=== PATIENT | male | born 1975 | race Caucasian/White ===

== ENCOUNTER 2017-01-10 19:02 | Inpatient (IN) | payer SELFPAY ==
[~2017-01-10] VITALS: Ht 167.6 cm; Wt 78.7 kg
--- NOTE | 2017-01-10 20:33 | NUR ---
PATIENT SEEN WITH COMPLAINT OF FLU SYMPTOMD. SEEN BY MD WENT FOR XRAY. OPATIENT RETURN TO THE ROOM. VITAL SIGNS RE-CHECK TEMP IS 103 TYLENOL WAS GIVEN
--- NOTE | 2017-01-10 20:58 | NUR ---
PATIENT MEDICATED WITH MOTRIN FOR FEVER. FAMILY REQUEST BLOOD SUGAR CHECK SAME IS 64 MG /DL. JUICE GIVEN
[2017-01-10 21:36] LABS: PLATELET COUNT 318 x10^3mcL (130-400); RED CELL DISTRIBUTION WIDTH 13.8 % (11.5-14.5)
[2017-01-10 21:39] LABS: BASOPHIL % 0 % (0-2)
[2017-01-10 21:44] LABS: CALCIUM 8.4 mg/dL (8.5-10.1); CARBON DIOXIDE 18.7 mmol/L (21-32); CREATININE SERUM 3.6 mg/dL (0.7-1.3); POTASSIUM SERUM 4.7 mmol/L (3.5-5.1)
[2017-01-10 21:49] LABS: BILIRUBIN TOTAL 0.2 mg/dL (0.20-1.00); TOTAL PROTEIN, SERUM 6.3 g/dL (6.4-8.2)
--- NOTE | 2017-01-10 21:57 | NUR ---
PATIEN IS SOCIALIZING WITH FAMILY, TEMPERATURE IS NOW 100.7. PATIENT EXPRESS MILD HEADACHE PAIN. ANTIBIOTIC AND FLUID INFUSING.
[2017-01-10] MEDS ORDERED: ZESTRIL5 MG PO (23:04)
[2017-01-10] MEDS ORDERED: LANTUS SOLOS100 U/M1 SQ (23:06)
[2017-01-10] MEDS ORDERED: LASIX20 MG PO (23:06)
[2017-01-10] MEDS ORDERED: NOVOLIN 70/3010 ML (23:07)
--- NOTE | 2017-01-10 23:27 | NUR ---
REPORT WAS GIVEN TO HAL. PATIENT TRANSPORTED TO ROOM 208B.
--- NOTE | 2017-01-10 23:54 | NUR ---
RECEIVED PT FROM ED VIA ERNEY, CAME IN DUE TO COUGH, FEVER AND BODY ACHES. AAOX4. NO SOB NOTED, LUNG SOUNDS CTA, STATED THAT HE HAS DRY COUGH. DENIES CHEST PAIN/PRESSURE, NSR ON THE MONITOR. DENIES ABDOMINAL DISCOMFORT. PALE. STATED THAT HE HAS RIGHT FOOR NUMBNESS. W/ DARK DISCOLORATION AND SWELLING ON RIGHT FOOT (WORSE ON THE 3RD-4TH TOE) AND OPEN WOUND ON THE PLANTAR ASPECT OF THE RIGHT FOOT, NO DRAINAGE NOTED. WOUND CLEANSED W/ NS, PAT AND DRY, COVERED W/ NON-ADHERENT DRESSING, KERLIX AND SECURED W/ FABIÁN BANDAGE. WOUND CULTURE DONE AND SENT TO LAB. DR. TRIMBLE AT BEDSIDE. SIDE RAILS UPX2. CALL LIGHT ON REACH. ENDORSED TO PRIMARY NURSE HAL FOR CONTINUITY OF CARE.
[2017-01-11] VITALS (8 sets, daily range): BP systolic 103–140; BP diastolic 61–88; Ht 167.6 cm; Wt 78.7 kg
[2017-01-11 00:07] LABS: FREE T4 1.4 ng/dL (0.76-1.46); FREE THYROXINE INDEX 2.5 ug/dL (1.4-4.5); T4(THYROXINE) 6.3 ug/dL (4.7-13.3)
--- NOTE | 2017-01-11 00:28 | NUR ---
RANDOM BLOOD FYNJO=[id number].
[2017-01-11 00:58] LABS: MAGNESIUM 1.6 mg/dL (1.8-2.4); PHOSPHOROUS 3.4 mg/dL (2.5-4.9)
[2017-01-11 01:02] LABS: CHOLESTEROL/HDL RATIO 2.8
[2017-01-11 01:03] LABS: T3 TOTAL 0.72 ng/mL
--- NOTE | 2017-01-11 01:26 | NUR ---
VITALS RECHECKED AFTER BOLUS.BP 103/61 MMHG,HR 70,TEMP 99.6F,RR 18 O2 SAT @ 99%.WILL CONTINUE TO MONITOR.
[2017-01-11 01:36] LABS: IRON 17 ug/dL (65-170); TOTAL IRON BINDING CAPACITY 147 ug/dL (250-450)
[2017-01-11 03:28] LABS: RED BLOOD CELLS 3.13 M/mm3 (4.52-5.90)
[2017-01-11 03:40] LABS: microscopic required? YES; urine erythrocyte TRACE (NEGATIVE)
[2017-01-11 04:02] LABS: AMPHETAMINE QUAL UR NONE DETECTED (NEG <=1000)
--- NOTE | 2017-01-11 04:59 | NUR ---
PT SLEPT WELL ALL NIGHT.BREATHING EASY AND NON-LABORED.NOTED WITH OCCASSIONAL DRY COUGHING.ON RT PROTOCOL.I.S AT BEDSIDE AND ENCOURAGED USE.NO ASE NOTED FROM INITIAL DOSE OF ZOSYN IV ATB.ALL NEEDS MET.WILL CONTINUE TO MONITOR.
--- NOTE | 2017-01-11 07:15 | NUR ---
RECEIVED PT. IN BED A/A/O X3. NO SOB, NO N/V NOTED. DENIES ANY PAIN AT THIS TIME. NS RUNNING AT 210 CC/HR. VIA IV H/L AT L AC. SCD TO BLE MAINTAINED. BED IN LOW POS., CALL LIGHT WITHIN REACH. SIDE RAILS UP X3.
[2017-01-11 07:28] LABS: BASOPHIL % 0.2 % (0-2); PLATELET COUNT 247 x10^3mcL (130-400); RED CELL DISTRIBUTION WIDTH 13.9 % (11.5-14.5)
[2017-01-11 07:34] LABS: CALCIUM 7.8 mg/dL (8.5-10.1); CARBON DIOXIDE 14.2 mmol/L (21-32); CREATININE SERUM 3.7 mg/dL (0.7-1.3); MAGNESIUM 1.7 mg/dL (1.8-2.4); PHOSPHOROUS 4.5 mg/dL (2.5-4.9); POTASSIUM SERUM 5.3 mmol/L (3.5-5.1)
--- NOTE | 2017-01-11 08:36 | NUR ---
DR. GUZMAN, THE RESIDENTS, CHARGE NURSE, AND ATTENDING NURSE AT BEDSIDE. CAREPLAN DISCUSSED WITH PT. ALL QUESTIONS ANSWERED.
--- NOTE | 2017-01-11 08:45 | NUR ---
REPORTED K (5.3), H/H (7.2/22) TO DR. DENTON (DO RESIDENT). NO FURTHER ORDER RECEIVED AT THIS TIME.
--- NOTE | 2017-01-11 09:20 | NUR ---
Carlos A RINCON AT BEDSIDE PERFORMING R FOOT WOUND DEBRIDEMENT.
--- NOTE | 2017-01-11 09:35 | NUR ---
SWAB FROM R FOOT (PLANTAR AREA) WOUND OBTAINED BY DR. GAMEZ. R FOOT WOUND SWAB SENT TO LAB. DEPT. FOR WOUND C/S.
--- NOTE | 2017-01-11 09:50 | NUR ---
PHOTOGRAPH OF R FOOT (PLANTAR AREA) WOUND TAKEN POST WOUND DEBRIDEMENT.
--- NOTE | 2017-01-11 11:10 | NUR ---
NOTED PT. VOMITTED APPRO. 100 CC OF YELLOWISH VOMITUS. ZOFRAN 4MG IV GIVEN.
--- NOTE | 2017-01-11 12:20 | NUR ---
TEMP.= 100.8; TYLENOL 650MG PO GIVEN. COOLING MEASURES APPLIED.
--- NOTE | 2017-01-11 17:04 | NUR ---
REMAINS IN STABLE CONDITION AT THIS TIME. NO ACUTE DISTRESS NOTED.
--- NOTE | 2017-01-11 19:59 | NUR ---
RECEIVED PATIENT IN BED AWAKE, ALERT AND ORIENTED.TELE#13 NSR ON MONITORRESPIRATION EVEN AND NONLABOR WITH CLEAR BS SATTING AT 98% RA. IV TO LAC INTACT AND INFUSING WELL. WILL CONTINUE TO MONITOR.
--- NOTE | 2017-01-12 02:54 | NUR ---
SLEEPING THIS TIME NOINDICATION OF PAIN AND DISCOMFORT NOTED.
--- NOTE | 2017-01-12 04:03 | NUR ---
PATIENT FEBRILE 102.5 TYLENOL 650MG PO AND COOLING MEASURES GIVEN. WILL CONTINUE TO MONITOR.
--- NOTE | 2017-01-12 05:03 | NUR ---
SLEPT FAIRLY, CHECKED AT INTERVALS FOR NEEDS AND COMFORT. ALL NEEDS ATTENDED.
[2017-01-12 05:12] VITALS: BP 134/81
[2017-01-12 05:41] VITALS: BP 120/71
[2017-01-12 07:14] LABS: PLATELET COUNT 252 x10^3mcL (130-400); RED CELL DISTRIBUTION WIDTH 13.7 % (11.5-14.5)
--- NOTE | 2017-01-12 07:20 | NUR ---
PT RECEIVED. PT AAO X4. TELE [address] PT HAS SOME SWELLING TO THE RIGHT FOOT. RIGHT FOOT COVERED WITH DRESSING POST DEBRIDEMENT. DRESSING CDI. RESPIRATIONS EVEN AND UNLABORED ON ROOM AIR, SPO2 98%. RT PROTOCOL. BS ACTIVE. PT IS AMBULATORY. NS INFUSING PER ORDER, IV APPEARS WNL. PT APPEARS CALM. CALL LIGHT WITHIN REACH. WILL CONTINUE TO MONITOR.
[2017-01-12 07:30] LABS: BASOPHIL % 0 % (0-2)
[2017-01-12 07:31] LABS: CALCIUM 7.8 mg/dL (8.5-10.1); CREATININE SERUM 3.4 mg/dL (0.7-1.3); MAGNESIUM 1.7 mg/dL (1.8-2.4); PHOSPHOROUS 3.7 mg/dL (2.5-4.9); POTASSIUM SERUM 4.6 mmol/L (3.5-5.1)
--- NOTE | 2017-01-12 08:35 | NUR ---
DR GUZMAN AND MEDICAL TEAM VISITED PATIENT AT BEDSIDE THIS MORNING. PT UPDATED ON PLAN OF CARE. ALL QUESTIONS ANSWERED. RESIDENT MADE AWARE OF MORNING H&H LAB READING AT THIS TIME. WILL CONTINUE TO MONITOR FOR NEW ORDERS.
[2017-01-12 10:20] VITALS: BP 136/86
[2017-01-12 10:38] LABS: rbc morphology (normal/abnorm) ABNORMAL (NORMAL)
[2017-01-12 10:39] LABS: burr cell (echinocyte) 1+; schistocyte (helmet cell) 1+
--- NOTE | 2017-01-12 12:00 | NUR ---
PT RESTING IN BED WITH FAMILY AT BEDSIDE. NO ACUTE CHANGES TO CONDITION. NO INDICATIONS OF ACUTE DISTRESS. COOLING MEASURES CONTINUED FOR PATIENT. CALL LIGHT WITHIN REACH. WILL CONTINUE TO MONITOR.
[2017-01-12 14:21] VITALS: BP 128/63
[2017-01-12 17:23] VITALS: BP 117/73
--- NOTE | 2017-01-12 19:27 | NUR ---
REPORT GIVEN TO NIGHT NURSE. AT THIS TIME THE PATIENT IS RESTING IN BED. NO ACUTE CHANGES TO CONDITION. RESPIRATIONS UNLABORED AND EVEN ON ROOM AIR. COOLING MEASURES CONTINUED. IV INFUSING PER ORDER, APPEARS WNL. TELE MONITOR IN PLACE. FAMILY AT BEDSIDE. CALL LIGHT WITHIN REACH. ALL SAFETY MEASURES IN PLACE.
--- NOTE | 2017-01-12 19:30 | NUR ---
PT AWAKE, A/O X4. FAMILY AT BEDSIDE. NO ACUTE DISTRESS NOTED. PT DENIES ANY PAIN TO R FOOT, DIFFICULTY BREATHING OR CHEST PAIN AT THIS TIME. R FOOT DRESSING C/D/I AT THIS TIME. 3RD TOE APPEARS SWOLLEN. PT DENIES ANY NUMBNESS OR TINGLING TO RT TOE/FOOT. NO EDEMA, SWELLING OR REDNESS NOTED TO R LEG. IV FLUIDS INFUSING PER MD ORDER. IV TO LAC PATENT AND INTACT. NO PAIN, REDNESS, SWELLING NOTED TO SITE. ALL SAFETY MEASURES ENSURED. CALL LIGHT AND PERSONAL BELONGINGS WITHIN REACH WILL CONTINUE TO MONITOR.
[2017-01-12 20:34] VITALS: BP 127/79
--- NOTE | 2017-01-13 01:15 | NUR ---
PT AWAKE AND SITTING UP IN BED AT THIS TIME. TOOK PHOTO OF PTS DIABETIC ULCER TO PLANTAR ASPECT OF R. FOOT AND REDRESSED AREA. PT TOLERATED WELL. DENIED ANY PAIN. MINIMAL DRAINAGED NOTED TO DRESSING. NON-ODOROUS.
--- NOTE | 2017-01-13 05:24 | NUR ---
BLOOD SUGAR -, DR GONZALEZ MADE AWARE, D50 IVP GIVEN, PATIENT AWAKE AND ALERT. TO RECHECKED BLOOD SUGAR IN 30 MIN.
--- NOTE | 2017-01-13 05:49 | NUR ---
BLOOD SUGAR-102 RECHECKED AFTER D50 WAS GIVEN. WILL ENDORSED CONTINUOS CARE TO AM SHIFT.
[2017-01-13 05:52] VITALS: BP 156/88
--- NOTE | 2017-01-13 05:55 | NUR ---
PT RESTED THROUGHT MOST OF THE NIGHT. NO ACUTE DISTRESS NOTED. PT DENIES ANY PAIN TO R FOOT, SOB, CHEST PAIN AT THIS TIME. NO FEVER, CHILLS OR AREVALO NOTED. TEMP 97.9. IV FLUIDS INFUSING PER MD ORDER. IV SITED REMAINS PATENT AND INTACT. ALL PT NEEDS MET. ALL SAFETY MEASURES ENSURED. CALL LIGHT AND PERSONAL BELONGINGS WITHIN REACH. WILL CONTINUE TO MONITOR.
[2017-01-13 06:04] LABS: BASOPHIL % 0.1 % (0-2); PLATELET COUNT 300 x10^3mcL (130-400); RED CELL DISTRIBUTION WIDTH 13.9 % (11.5-14.5)
[2017-01-13 06:14] LABS: CALCIUM 8.3 mg/dL (8.5-10.1); CARBON DIOXIDE 15.1 mmol/L (21-32); CREATININE SERUM 3.3 mg/dL (0.7-1.3); MAGNESIUM 1.6 mg/dL (1.8-2.4); PHOSPHOROUS 4.1 mg/dL (2.5-4.9); POTASSIUM SERUM 4.8 mmol/L (3.5-5.1)
--- NOTE | 2017-01-13 06:30 | NUR ---
CALLED RT TO CONFIRM IF PT WILL GET SUCTIONED FOR SPUTUM SPECIMEN. RT STATED WILL ENDORSE TO ONCOMING SHIFT. PT UNABLE TO COUGH ANY SPUTUM AND STATES HE IS UNABLE TO DO SO. MADE PT AWARE THAT AN RT WILL BE COMING UP TO OBTAIN A SAMPLE VIA ORAL SUCTION.
--- NOTE | 2017-01-13 06:56 | NUR ---
RECEIVED CRITICAL LAB REPORT FROM LAB H/H 6.10/06, YESTERDAYS LAB WAS 6.07/06. NOTIFIED.
--- NOTE | 2017-01-13 07:30 | NUR ---
RECEIVED PATIENT AWAKE/ALERT LAYING IN BED AT THIS TIME; DR. GAMEZ WITH ANOTHER INTERNAL AT BEDSIDE PERFORM DEBRIDEMENT TO RT FOOT; IV INTACT AND INFUSING TO LAC; DENIES PAIN AT THIS TIME. WILL BE BACK WHEN DOCTOR DONE. CALL LIGHT WITHIN REACH.
--- NOTE | 2017-01-13 07:50 | NUR ---
DR. DENTON WAS AWARE H/H 6.8.
[2017-01-13 08:21] LABS: rbc morphology (normal/abnorm) ABNORMAL (NORMAL)
--- NOTE | 2017-01-13 09:00 | NUR ---
PATIENT RESTING IN BED NO COMPLAINT, CONSENT FOR EGD OBTAINED; MODERATE SEDATION SIGNED BY PATIENT NO FURTHER QUESTION; JEWLERY REMOVED; PATIENT WAS NPO SINCE 0700. CALL LIGHT WITHIN REACH.
[2017-01-13 09:54] VITALS: BP 139/85
--- NOTE | 2017-01-13 10:17 | NUR ---
PATIENT SAT UP AT SIDE OF BED NO COMPLAINT, MG-RIDER 1 GM IVPB GIVEN FOR MG 1.6; REPLACE IVF TO 1/2NS + 50ML SODIUM BICARBONATE @ 75ML/HR ORDER; NEEDS ANTICIPATED.
--- NOTE | 2017-01-13 10:43 | NUR ---
MAYI IV; GI NURSE AT BEDSIDE TRANSPORT PATIENT OFF FLOOR TO GI LAB FOR EGD.
--- NOTE | 2017-01-13 12:10 | NUR ---
RECEIVED PATIENT BACK FROM GI LAB IN BED AWAKE/ALERT SLIGHTLY DROWSY NOTED, DENIES PAIN. IV INTACT CONNECT TO IV PUMP CONT MG-RIDER INFUSING @ 50ML/HR. FAMILY MEMBERS AT BEDSIDE. CALL LIGHT WITHIN REACH. VSS. CONT TO MONITOR.
[2017-01-13 12:16] VITALS: BP 124/74
--- NOTE | 2017-01-13 13:20 | NUR ---
PATIENT BACK FROM BATHROOM; FAMILY MEMBERS AT BEDSIDE. DUE MEDS GIVEN. NEEDS ANTICIPATED.
--- NOTE | 2017-01-13 15:56 | NUR ---
PATIENT SLEEPING AROUSABLE, NO COMPLAINT. DUE MEDS GIVEN. CLEOCIN 600MG IVPB GIVEN. DENIES PAIN AT THIS TIME. FAMILY MEMBERS AT BEDSIDE. CONT TO MONITOR.
[2017-01-13 16:16] VITALS: BP 142/84
--- NOTE | 2017-01-13 17:21 | NUR ---
PATIENT SIT UP IN BED NO COMPLAINT, DUE MEDS GIVEN. BS 284 GIVE 9 UNITS HUMULIN R SQ TO LT ARM; NEEDS ANTICIPATED. FAMILY MEMBERS REMAIN AT BEDSIDE. CONT TO MONITOR.
[2017-01-13 17:29] VITALS: BP 142/84
--- NOTE | 2017-01-13 18:32 | NUR ---
PATIENT RESTING IN BED NO COMPLAINT, FAMILY MEMBERS REMAIN AT BEDSIDE; IV INTACT AND PATENT. CALL LIGHT WITHIN REACH.
--- NOTE | 2017-01-13 19:10 | NUR ---
START PATIENT ON MOVIPREP; CARE ENDORSE TO ON-COMING NURSE.
--- NOTE | 2017-01-13 19:50 | NUR ---
PT SEEN, RESTING IN BED, ALERT AND ORIENTED, DENIES HEADACHE OR DIZZINESS, BREATHING EVEN AND UNLABORED, NO SOB, LUNG SOUNDS CLEAR, ON ROOM AIR WITH NO RESP DISTRESS NOTED, ON TELE#13 NSR, DENIES CHEST PAIN, IVF INFUSING WELL WITH SODIUM BICARBONATE @ 75 ML/HR, PULSES PALPABLE, EDEMA NOTED TO RLE, DRESSING TO RLE, ABD ROUND AND SOFT WITH ACTIVE BS, NO BM AT THIS TIME, ON BOWEL PREP, VOIDING FREELY, NO DISTRESS NOTED, WILL KEEP TO MONITOR.
[2017-01-13 20:30] VITALS: BP 128/84
--- NOTE | 2017-01-13 23:55 | NUR ---
ROUNDS MADE, PT AWAKE AND RESTING IN BED, FINISHED MOVI-PREP, IVF INFUSING WELL, NO DISTRESS NOTED, WILL KEEP TO MONITOR.
[2017-01-14 04:55] VITALS: BP 106/63
--- NOTE | 2017-01-14 05:45 | NUR ---
PT THIS MORNING BLOOD SUGAR-56 MG/DL AND REPEATED WAS 64 MG/DL, DEXTROSE 50% 50ML ADMINISTERED PER PROTOCOL, PT WAS AWAKE, ALERT AND ORINETED, DENIES ANY DISCOMFORT, NPO AFTER MN FOR COLONOSCOPY AND I&D AM, RECHECK PT'S BLOOD SUGAR 15 MINS AFTER ADMINISTERED DEXTROSE 50%, BLOOD SUGAR WENT UP TO 140 MG/DL, NOTIFIED DR BARGER ABOUT PT'S SUGAR, OLD IV SITE IS LEAKING, RE-INSERTED TO SARMAD WITH 22G, CONT INFUSING WITH SODIUM BICARBONATE @ 75 ML/HR, LAST BM WAS LIGHT GREENISH LIQUID, NO DISTRESS NOTED, WILL KEEP TO MONITOR.
[2017-01-14 06:18] LABS: BASOPHIL % 0.3 % (0-2); PLATELET COUNT 284 x10^3mcL (130-400)
[2017-01-14 06:37] LABS: CALCIUM 8.4 mg/dL (8.5-10.1); CARBON DIOXIDE 16.2 mmol/L (21-32); CREATININE SERUM 3.1 mg/dL (0.7-1.3); MAGNESIUM 1.9 mg/dL (1.8-2.4); PHOSPHOROUS 4.2 mg/dL (2.5-4.9); POTASSIUM SERUM 4.8 mmol/L (3.5-5.1)
--- NOTE | 2017-01-14 07:24 | NUR ---
RECEIVED PATIENT AWAKE/ALERT IN BED NO DISTRESS NOTED; DENIES PAIN AT THIS TIME. DR. GAMEZ WITH ANOTHER DOCTOR AT BEDSIDE PERFORM DEBRIDEMENT OF RT FOOT. IV INTACT AND INFUSING WELL. CALL LIGHT WITHIN REACH.
--- NOTE | 2017-01-14 08:05 | NUR ---
PATIENT OFF FLOOR VIA BED TO GI LAB FOR COLONOSCOPY.
--- NOTE | 2017-01-14 08:28 | NUR ---
DR. DENTON WAS MADE AWARE H/H 6.06/06
--- NOTE | 2017-01-14 09:21 | NUR ---
RECEIVED PATIENT FROM GI VIA BED DROWSY BUT AROUSABLE; DENIES PAIN. IV CONNECT TO IV PUMP CONT 1/2NS + SODIUM BICARB @ 75ML/HR; PUT BACK ON TELE # 13 NSR HR 91. INSTRUCT PATIENT NOT TO GET UP CALL FOR ASSISTANCE; URINAL PLACE NEXT TO PATIENT. VSS. CONT TO MONITOR.
[2017-01-14 09:23] LABS: LACTIC DEHYDROGENASE (LDH) 163 U/L (100-190)
[2017-01-14 09:31] LABS: RED BLOOD CELLS 2.3 M/mm3 (4.52-5.90)
--- NOTE | 2017-01-14 09:40 | NUR ---
PATIENT SLEEPY HELD ALL DUE MEDS PO; ZOSYN IVPB GIVEN TO SARMAD. CALL LGHT WITHIN REACH. CONT TO MONITOR.
[2017-01-14 10:27] VITALS: BP 135/90
[2017-01-14 10:57] LABS: rbc morphology (normal/abnorm) ABNORMAL (NORMAL)
--- NOTE | 2017-01-14 12:08 | NUR ---
PATIENT RESTING IN BED NO COMPLAINT, FAMILY MEMBERS AT BEDSIDE; BS 198 GIVEN 3 UNIITS HUMULIN R SQ AND DUE MEDS GIVEN. LEVAQUIN IVPB GIVEN ORDERED. NEEDS ANTICIPATED.
--- NOTE | 2017-01-14 12:23 | NUR ---
INFORM OR NURSE VIRA JUST FOUND OUT PATIENT ATE AROUND 1100; PER VIRA WILL CALL BACK TO UPDATE.
[2017-01-14 13:48] VITALS: BP 144/86
--- NOTE | 2017-01-14 15:17 | NUR ---
Initial Nutrition Assessment Dx: Pneumonia, Metabolic acidosis and acute renal failure PMHx: HTN, DM PSHx:Appendectomy (2008) Labs: (01/14) B, BUN:31H, Cr:3.1H, Ca:8.4L, WBC:13.8H, H/H:6.4/20L(01/10) A1c:9.6H Meds: Ferrous sulfate, Humulin, Lactinex, Levemir, Sodium Bicarbonate, Theragran Diet:CCHO PO Intake: (01/11) B:100% (01/12) B:80%, L:100%, D:100% (01/13) NPO Ht:66in, 5'6" Wt:173#, 78.66kg BMI:28kg (overweight) IBW: 142#,65kg %IBW: 122% UBW:unable to obtain Age:41 y/o male Food Allergies:unable to obtain Skin: DM2 Neuropathic ucleration NPUAP Stage 4, right foot per Music Professor Ariel:20 Edema:right foot s/p debridement GI:active bowel sounds Last BM:03/15 Pt admitted with possible sepsis secondary to aspiration PNA abd diabetic foot ulcer per H&P. Per progress note 01/14, pt had EGD showed no bleeding and Colonscopy with Dr. Bell ,which showed mild hemorroids and tx for anemia of chronic disease. Pt also with DM2 Neuropathic ucleration, Stage 4 Diabetic ulcer, 2.6 x 4.3 x 3.3 cm, right plantar fore foot s/p excisional Debridement, POD#3. During visit, pt was not in room. Pt was downstairs in the operating room for debridement. Spoke to Dr. Moctezuma about pt being on Vitmin C 500mg BID and then the medication being discontinued. Per Dr. Moctezuma the photoengraver discontinued medicine. Recommended Vitamin C 250mg every other day, which is a safe dose for pt's with renal failure. Doctor input orders. Problem with: N: No V:No D: No C:No Problems with: Chewing:No Swallowing:No per progress note Current appetite: Good Recent wt change:unable to obtain %wt change:N/A Vitamin/Supplement use:None per H&P Special diet at home:Diabetic per admission assessment Physical activity: unable to obtain Education: unable to provide due to pt not in room and no family at bedside. Estimated Nutritional Needs Based on actual body weight 79 kg Energy: 2370-2765kcal/d (30-35kcal/kg for stage IV ulcer) Protein:118-158 g/d (1.5-2.0g/kg for stage IV ulcer) Fluid: 2370-2765ml/d (1 ml/kcal) or per doctor Nutrition Diagnosis 1. Increased nutrient needs relatd to altered skin integrity as evidenced by stage IV pressure ulcer on right foot. Intervention 1. Recommend continue with CCHO diet. 2. Recommend Vitamin C 250mg every other day for wound healing. Monitor/Evaluate Goal: PO intake at least 75% of estimated needs and owound helaing Monitor: PO intake, Labs, GI function, skin intergrity F/U in 3-5 days as moderate risk:01/17-3
--- NOTE | 2017-01-14 15:21 | NUR ---
1. Recommend continue with CCHO diet. 2. Recommend Vitamin C 250mg every other day for wound healing
--- NOTE | 2017-01-14 15:53 | NUR ---
PATIENT IN BED PHONE OPERATOR AT BEDSIDE DRAW BLOOD FOR TYPE& SCREEN; ZOSYN IVPB GIVEN; HYDRALAZINE GIVEN; BP 178/100 HR 104 WILL CONT TO MONITOR BP; FAMILY MEMBERS REMAIN AT BEDSIDE. CALL LIGHT WITHIN REACH.
[2017-01-14] MEDS ORDERED: LAC PO (17:15)
[2017-01-14] MEDS ORDERED: LEVEMIR100 U/M1 SQ (17:15)
[2017-01-14] MEDS ORDERED: SOD650 PO (17:15)
[2017-01-14] MEDS ORDERED: APR25 PO (17:15)
[2017-01-14] MEDS ORDERED: PRO10I SQ (17:15)
[2017-01-14] MEDS ORDERED: ZOS2PM IV (17:15)
[2017-01-14] MEDS ORDERED: LEVAQUIN750 MG PO (17:16)
[2017-01-14] MEDS ORDERED: FERRLECIT62.5 MG/5 IV (17:17)
--- NOTE | 2017-01-14 17:18 | NUR ---
PATIENT RESTING IN BED WITH FAMILY MEMBERS AT BEDSIDE; BP 160/87, MAP 103. INFORM PATIENT TRANSPORT WILL BE HERE AT 6PM WIRE MACHINE OPERATOR FOR [facility]. TELE BOX D/C. IV HEPLOCK. HUMULIN R 12 UNITS SQ GIVEN FOR BS 315. NEEDS ANTICIPATED.
[2017-01-14] MEDS ORDERED: VITC PO (17:20)
[2017-01-14] MEDS ORDERED: THERA TABS1 TAB PO (17:20)
[2017-01-14] MEDS ORDERED: FERL PO (17:21)
[2017-01-14 17:25] VITALS: BP 160/87
[2017-01-14 17:43] VITALS: BP 160/87
--- NOTE | 2017-01-14 18:10 | NUR ---
PATIENT RESTING IN BED ALREADY DRESS NO COMPLAINT, DISCHARGE INSTRUCTION AND PRESCRIPTIONS EXPLAINED; PATIENT TO F/U WITH DR. FLOWERS FROM [facility]. IV HEPLOCK GOING WITH PATIENT FOR IV ABX. CALL [facility] AND REPORT GIVEN TO NURSE MICHAEL; PATIENT GOING TO # 9 4 EAST. TELE REMOVED AND RETURN TO TELE ROOM.
--- NOTE | 2017-01-14 18:20 | NUR ---
REPORT GIVEN TO BANNER JHON GONZALEZ AND ALL DISCHARGE PAPER WORK WITH TRANSPORT.
--- NOTE | 2017-01-14 18:40 | NUR ---
PATIENT TRANSFER TO [facility]IA [facility] IN STABLE CONDITION; FAMILY MEMBERS HAS ALL PATIENT BELONGINGS.
== END 2017-01-14 18:37 | disposition short-term general hospital (02) | DRG 853 ==
LOC: ED 19:02 → DU 23:02
PROVIDERS: Emergency Medicine; Family Medicine; Internal Medicine Gastroenterology; ADMIT Family Medicine
PROC: 0JBQ0ZZ Excision of Right Foot Subcutaneous Tissue and Fascia, Open Approach (ICD-10-PCS; principal; 2017-01-11)
PROC: 0J9Q0ZZ Drainage of Right Foot Subcutaneous Tissue and Fascia, Open Approach (ICD-10-PCS; 2017-01-14)
DX: A41.9 Sepsis, unspecified organism (principal); J69.0 Pneumonitis due to inhalation of food and vomit; N17.0 Acute kidney failure with tubular necrosis; E43 Unspecified severe protein-calorie malnutrition; I50.43 Acute on chronic combined systolic (congestive) and diastolic (congestive) heart failure; E87.2 Acidosis; D68.69 Other thrombophilia; E87.1 Hypo-osmolality and hyponatremia; L03.115 Cellulitis of right lower limb; I42.9 Cardiomyopathy, unspecified; E11.621 Type 2 diabetes mellitus with foot ulcer; E11.65 Type 2 diabetes mellitus with hyperglycemia; I11.0 Hypertensive heart disease with heart failure; K31.84 Gastroparesis; E11.43 Type 2 diabetes mellitus with diabetic autonomic (poly)neuropathy; E11.42 Type 2 diabetes mellitus with diabetic polyneuropathy; E11.51 Type 2 diabetes mellitus with diabetic peripheral angiopathy without gangrene; K64.9 Unspecified hemorrhoids; K52.9 Noninfective gastroenteritis and colitis, unspecified; E87.5 Hyperkalemia; E83.42 Hypomagnesemia; R31.9 Hematuria, unspecified; Z68.28 Body mass index [BMI] 28.0-28.9, adult; D63.8 Anemia in other chronic diseases classified elsewhere
CPT/HCPCS: 43235; 45378; 83880; 84439; 87046; 87046-59; 87804; 94150; J0885-EC; J1200; J1610; J1815; J1956; J2250; J2310; J2405; J2543; J2765; J2916; J3010; J3475; J3490; J7030; J7620; Q0092

== ENCOUNTER 2017-02-13 11:09 | Inpatient (IN) | payer OTHER ==
[~2017-02-13] VITALS: Ht 175.3 cm; Wt 84.1 kg
[~2017-02-13 11:09] MED LIST: APR25 PO; FERL PO; FERRLECIT62.5 MG/5 IV; LAC PO; LANTUS SOLOS100 U/M1 SQ; LASIX20 MG PO; LEVAQUIN750 MG PO; LEVEMIR100 U/M1 SQ; NOVOLIN 70/3010 ML; PRO10I SQ; SOD650 PO; THERA TABS1 TAB PO; VITC PO; ZESTRIL5 MG PO; ZOS2PM IV
[2017-02-13 12:08] LABS: BASOPHIL % 0.2 % (0-2); PLATELET COUNT 237 x10^3mcL (130-400)
[2017-02-13 12:09] LABS: RED CELL DISTRIBUTION WIDTH 16.1 % (11.5-14.5)
[2017-02-13 12:20] LABS: ALKALINE PHOSPHATASE 136 U/L (46-116); ALT/SGPT 81 U/L (16-63); AST/SGOT 17 U/L (15-37); BILIRUBIN TOTAL 0.2 mg/dL (0.20-1.00); CALCIUM 7.9 mg/dL (8.5-10.1); CHLORIDE SERUM 104 mmol/L (98-107); LIPASE 392 IU/L (73-393); SODIUM SERUM 130 mmol/L (136-145); TOTAL PROTEIN, SERUM 6.3 g/dL (6.4-8.2)
[2017-02-13 12:34] LABS: ALBUMIN 2.5 g/dL (3.4-5.0); GFR1 7 mL/min
[2017-02-13 12:35] LABS: CARBON DIOXIDE < 5 mmol/L (21-32); CREATININE SERUM 8.8 mg/dL (0.7-1.3); GLUCOSE SERUM 644 mg/dL (74-106); POTASSIUM SERUM 7.5 mmol/L (3.5-5.1)
[2017-02-13 13:40] LABS: MAGNESIUM 3.3 mg/dL (1.8-2.4); PHOSPHOROUS 8.6 mg/dL (2.5-4.9)
[2017-02-13 13:51] LABS: FREE T4 0.84 ng/dL (0.76-1.46)
[2017-02-13 13:53] LABS: FREE THYROXINE INDEX 1.3 ug/dL (1.4-4.5); T4(THYROXINE) 3.7 ug/dL (4.7-13.3)
[2017-02-13 13:59] LABS: T3 TOTAL 0.56 ng/mL
[2017-02-13 16:06] VITALS: BP 125/66
[2017-02-13 17:09] LABS: CALCIUM 7.8 mg/dL (8.5-10.1); CHLORIDE SERUM 112 mmol/L (98-107); GFR1 7 mL/min; GLUCOSE SERUM 336 mg/dL (74-106); PHOSPHOROUS 7.4 mg/dL (2.5-4.9); SODIUM SERUM 135 mmol/L (136-145)
[2017-02-13 17:28] LABS: POTASSIUM SERUM 6.2 mmol/L (3.5-5.1)
[2017-02-13 17:29] LABS: CARBON DIOXIDE < 5.0 mmol/L (21-32)
[2017-02-13 17:30] LABS: CREATININE SERUM 8.5 mg/dL (0.7-1.3)
[2017-02-13 19:30] VITALS: BP 112/51
[2017-02-13 20:44] LABS: CALCIUM 7.7 mg/dL (8.5-10.1); MAGNESIUM 2.9 mg/dL (1.8-2.4); PHOSPHOROUS 7.3 mg/dL (2.5-4.9)
[2017-02-13 20:48] LABS: POTASSIUM SERUM 6.1 mmol/L (3.5-5.1)
[2017-02-13 20:49] LABS: CARBON DIOXIDE 6.9 mmol/L (21-32); CREATININE SERUM 8.3 mg/dL (0.7-1.3)
[2017-02-13 23:34] LABS: UA SPECIFIC GRAVITY 1.025 (1.005-1.035); microscopic required? YES; urine erythrocyte 2+ (NEGATIVE)
[2017-02-13 23:43] VITALS: BP 100/66
[2017-02-13 23:43] LABS: AMPHETAMINE QUAL UR NONE DETECTED (NEG <=1000)
[2017-02-14 01:10] LABS: CALCIUM 7.9 mg/dL (8.5-10.1); MAGNESIUM 2.9 mg/dL (1.8-2.4)
[2017-02-14 01:24] LABS: CARBON DIOXIDE 7.9 mmol/L (21-32); CREATININE SERUM 8.2 mg/dL (0.7-1.3); POTASSIUM SERUM 5.7 mmol/L (3.5-5.1)
[2017-02-14 03:06] VITALS: BP 125/79
[2017-02-14 05:30] LABS: CALCIUM 7.5 mg/dL (8.5-10.1); CARBON DIOXIDE 11.1 mmol/L (21-32); MAGNESIUM 2.8 mg/dL (1.8-2.4); PHOSPHOROUS 7.3 mg/dL (2.5-4.9); POTASSIUM SERUM 5.5 mmol/L (3.5-5.1)
[2017-02-14 05:33] LABS: CREATININE SERUM 8.3 mg/dL (0.7-1.3)
[2017-02-14 08:02] VITALS: BP 152/83
[2017-02-14 10:14] LABS: CALCIUM 7.2 mg/dL (8.5-10.1); CARBON DIOXIDE 23.9 mmol/L (21-32); MAGNESIUM 1.7 mg/dL (1.8-2.4); PHOSPHOROUS 3.9 mg/dL (2.5-4.9); POTASSIUM SERUM 3.4 mmol/L (3.5-5.1)
[2017-02-14 10:15] LABS: CREATININE SERUM 4.2 mg/dL (0.7-1.3)
[2017-02-14 12:10] VITALS: BP 156/99
[2017-02-14 13:34] LABS: CALCIUM 7.4 mg/dL (8.5-10.1); CARBON DIOXIDE 21.2 mmol/L (21-32); MAGNESIUM 1.9 mg/dL (1.8-2.4); PHOSPHOROUS 4.2 mg/dL (2.5-4.9); POTASSIUM SERUM 3.5 mmol/L (3.5-5.1)
[2017-02-14 13:39] LABS: CREATININE SERUM 4.7 mg/dL (0.7-1.3)
[2017-02-14 15:21] VITALS: BP 100/62
[2017-02-14] MEDS ORDERED: ATORVASTATIN CA40 M1 PO (15:22)
[2017-02-14] MEDS ORDERED: LISINOPRIL10 MG PO (15:23)
[2017-02-14] MEDS ORDERED: NOR10 PO (15:24)
[2017-02-14] MEDS ORDERED: CHLORTHALIDONE25 MG PO (15:26)
[2017-02-14] MEDS ORDERED: ASPIRIN81 MG PO (15:27)
[2017-02-14] MEDS ORDERED: LANTUS SOLOS100 U/M1 (15:28)
[2017-02-14] MEDS ORDERED: NOVOLOG FLEX100 U/M1 (15:36)
[2017-02-14 16:45] LABS: CALCIUM 7.3 mg/dL (8.5-10.1); CARBON DIOXIDE 25.4 mmol/L (21-32); MAGNESIUM 1.9 mg/dL (1.8-2.4); PHOSPHOROUS 4.9 mg/dL (2.5-4.9); POTASSIUM SERUM 3.4 mmol/L (3.5-5.1)
[2017-02-14 19:30] VITALS: BP 120/74
[2017-02-14 21:05] LABS: CALCIUM 7.4 mg/dL (8.5-10.1); CARBON DIOXIDE 24.7 mmol/L (21-32); MAGNESIUM 1.9 mg/dL (1.8-2.4); PHOSPHOROUS 5.2 mg/dL (2.5-4.9); POTASSIUM SERUM 3.4 mmol/L (3.5-5.1)
[2017-02-14 21:08] LABS: CREATININE SERUM 4.8 mg/dL (0.7-1.3)
[2017-02-15] VITALS (8 sets, daily range): BP systolic 124–161; BP diastolic 75–95; Ht 175.3 cm; Wt 84.1 kg
[2017-02-15 05:54] LABS: BASOPHIL % 0.4 % (0-2); PLATELET COUNT 199 x10^3mcL (130-400)
[2017-02-15 05:56] LABS: RED CELL DISTRIBUTION WIDTH 15.7 % (11.5-14.5)
[2017-02-15 05:57] LABS: rbc morphology (normal/abnorm) ABNORMAL (NORMAL)
[2017-02-15 06:03] LABS: CALCIUM 7.6 mg/dL (8.5-10.1); CARBON DIOXIDE 18.9 mmol/L (21-32); MAGNESIUM 1.9 mg/dL (1.8-2.4); PHOSPHOROUS 6.3 mg/dL (2.5-4.9)
[2017-02-15 06:32] LABS: CREATININE SERUM 5.4 mg/dL (0.7-1.3)
[2017-02-16 05:22] VITALS: BP 141/76
[2017-02-16 07:27] LABS: BASOPHIL % 0.6 % (0-2); PLATELET COUNT 205 x10^3mcL (130-400)
[2017-02-16 07:56] LABS: CARBON DIOXIDE 23.7 mmol/L (21-32); MAGNESIUM 1.8 mg/dL (1.8-2.4); PHOSPHOROUS 5.8 mg/dL (2.5-4.9); POTASSIUM SERUM 3.4 mmol/L (3.5-5.1)
[2017-02-16 08:13] LABS: CREATININE SERUM 4.7 mg/dL (0.7-1.3)
[2017-02-16 10:18] VITALS: BP 168/99
[2017-02-16 10:30] LABS: RED CELL DISTRIBUTION WIDTH 15.7 % (11.5-14.5)
[2017-02-16 14:14] VITALS: BP 169/99
[2017-02-16 14:39] LABS: rbc morphology (normal/abnorm) ABNORMAL (NORMAL)
[2017-02-16 18:23] VITALS: BP 168/96
[2017-02-16 21:29] VITALS: BP 172/99
[2017-02-17 05:43] VITALS: BP 154/85
[2017-02-17 08:50] VITALS: BP 153/83
[2017-02-17 11:52] LABS: BASOPHIL % 0.3 % (0-2); CALCIUM 8.3 mg/dL (8.5-10.1); CARBON DIOXIDE 19.8 mmol/L (21-32); MAGNESIUM 1.8 mg/dL (1.8-2.4); PHOSPHOROUS 4.4 mg/dL (2.5-4.9); PLATELET COUNT 231 x10^3mcL (130-400); POTASSIUM SERUM 3.7 mmol/L (3.5-5.1)
[2017-02-17 11:54] LABS: RED CELL DISTRIBUTION WIDTH 15.4 % (11.5-14.5)
[2017-02-17 11:59] LABS: CREATININE SERUM 4.3 mg/dL (0.7-1.3)
[2017-02-17 17:35] VITALS: BP 140/82
[2017-02-17 20:30] VITALS: BP 145/88
[2017-02-18] VITALS (9 sets, daily range): BP systolic 138–171; BP diastolic 64–98
[2017-02-18 08:31] LABS: CALCIUM 7.9 mg/dL (8.5-10.1); CARBON DIOXIDE 23.6 mmol/L (21-32); PHOSPHOROUS 4.3 mg/dL (2.5-4.9); POTASSIUM SERUM 3.1 mmol/L (3.5-5.1)
[2017-02-18 08:33] LABS: CREATININE SERUM 4.9 mg/dL (0.7-1.3)
[2017-02-18 08:53] LABS: BASOPHIL % 0.5 % (0-2); PLATELET COUNT 198 x10^3mcL (130-400)
[2017-02-18 11:44] LABS: acanthocyte (spur cell) 1+; rbc morphology (normal/abnorm) ABNORMAL (NORMAL)
[2017-02-19 05:04] VITALS: BP 157/88
[2017-02-19 07:14] LABS: CARBON DIOXIDE 25.8 mmol/L (21-32); CREATININE SERUM 3.7 mg/dL (0.7-1.3); MAGNESIUM 1.8 mg/dL (1.8-2.4); PHOSPHOROUS 3.9 mg/dL (2.5-4.9)
[2017-02-19 07:30] LABS: BASOPHIL % 0.3 % (0-2); PLATELET COUNT 200 x10^3mcL (130-400); RED CELL DISTRIBUTION WIDTH 15.6 % (11.5-14.5)
[2017-02-19 09:18] VITALS: BP 175/97
[2017-02-19 13:03] VITALS: BP 130/72
[2017-02-19 17:26] VITALS: BP 140/85
[2017-02-19 21:52] VITALS: BP 150/90
[2017-02-20 06:29] VITALS: BP 159/91
[2017-02-20 06:46] LABS: BASOPHIL % 0.3 % (0-2); PLATELET COUNT 196 x10^3mcL (130-400)
[2017-02-20 06:49] LABS: RED CELL DISTRIBUTION WIDTH 15.3 % (11.5-14.5)
[2017-02-20 06:57] LABS: CALCIUM 7.9 mg/dL (8.5-10.1); MAGNESIUM 1.9 mg/dL (1.8-2.4); PHOSPHOROUS 4.3 mg/dL (2.5-4.9); POTASSIUM SERUM 3.8 mmol/L (3.5-5.1)
[2017-02-20 07:19] LABS: CREATININE SERUM 4.4 mg/dL (0.7-1.3)
[2017-02-20 10:47] VITALS: BP 172/93
[2017-02-20] MEDS ORDERED: TEN25 PO (13:10)
[2017-02-20] MEDS ORDERED: NOR5 PO (13:10)
[2017-02-20] MEDS ORDERED: NEP PO (13:11)
[2017-02-20] MEDS ORDERED: PHOS PO (13:11)
[2017-02-20] MEDS ORDERED: COL100 PO (13:11)
[2017-02-20] MEDS ORDERED: LEVEMIR100 U/M1 SC (13:11)
[2017-02-20 13:42] VITALS: BP 139/91; BP 172/93
[2017-02-20 13:48] VITALS: BP 139/91
== END 2017-02-20 14:49 | disposition short-term general hospital (02) | DRG 628 ==
LOC: ED 11:09 → MU 12:46 → IC 12:46 → DU 02-15 18:22 → MU 02-16 18:33
PROVIDERS: Emergency Medicine; Family Medicine; Internal Medicine Nephrology; Student in an Organized Health Care Education/Training Program
PROC: 05HM33Z Insertion of Infusion Device into Right Internal Jugular Vein, Percutaneous Approach (ICD-10-PCS; 2017-02-13)
PROC: B543ZZA Ultrasonography of Right Jugular Veins, Guidance (ICD-10-PCS; 2017-02-13)
PROC: 02HV33Z Insertion of Infusion Device into Superior Vena Cava, Percutaneous Approach (ICD-10-PCS; 2017-02-14)
PROC: B548ZZA Ultrasonography of Superior Vena Cava, Guidance (ICD-10-PCS; 2017-02-14)
PROC: 0KBV0ZZ Excision of Right Foot Muscle, Open Approach (ICD-10-PCS; 2017-02-15)
PROC: 05HM33Z Insertion of Infusion Device into Right Internal Jugular Vein, Percutaneous Approach (ICD-10-PCS; 2017-02-18)
PROC: B5131ZA Fluoroscopy of Right Jugular Veins using Low Osmolar Contrast, Guidance (ICD-10-PCS; 2017-02-18)
PROC: 0JQQ0ZZ Repair Right Foot Subcutaneous Tissue and Fascia, Open Approach (ICD-10-PCS; principal; 2017-02-20)
DX: E10.10 Type 1 diabetes mellitus with ketoacidosis without coma (principal); N17.0 Acute kidney failure with tubular necrosis; E43 Unspecified severe protein-calorie malnutrition; T87.81 Dehiscence of amputation stump; I16.0 Hypertensive urgency; E10.42 Type 1 diabetes mellitus with diabetic polyneuropathy; E10.22 Type 1 diabetes mellitus with diabetic chronic kidney disease; E10.65 Type 1 diabetes mellitus with hyperglycemia; N18.9 Chronic kidney disease, unspecified; E87.5 Hyperkalemia; E83.41 Hypermagnesemia; E83.39 Other disorders of phosphorus metabolism; B35.1 Tinea unguium; D64.9 Anemia, unspecified; E03.9 Hypothyroidism, unspecified; Z68.25 Body mass index [BMI] 25.0-25.9, adult; Z89.421 Acquired absence of other right toe(s); Y83.5 Amputation of limb(s) as the cause of abnormal reaction of the patient, or of later complication, without mention of misadventure at the time of the procedure; Y92.009 Unspecified place in unspecified non-institutional (private) residence as the place of occurrence of the external cause
CPT/HCPCS: 36556; 36600; 83880; 84439; 86580; A4301; A4719; J0360; J0610; J0690; J1642; J1644; J1815; J1956; J2001; J2060; J2405; J2704; J3010; J3475; J3490; J7030; J7050; P9016; Q0092; Q0163